=== PATIENT | male | born 1985 | race Caucasian/White ===

== ENCOUNTER 2016-09-20 11:45 | Emergency (ER) | payer MEDICAID ==
[2016-09-20] MEDS ORDERED: ONDANSETRON HCL 4 MG/2 ML VIAL ONE (12:22)
[2016-09-20] MEDS ORDERED: HYDROmorphone HCL 1 MG/ML SYR ONE (12:31)
[2016-09-20 13:02] LABS: BLOOD UREA NITROGEN 12 mg/dL (9-20); CALCIUM 10.2 mg/dL (8.4-10.2); CHLORIDE 106 mmol/L (98-107); CREATININE 0.7 mg/dL (0.7-1.3); EST GLOMERULAR FILTRATION RATE > 60 mL/min; GLUCOSE 106 mg/dL (70-100); POTASSIUM 4.4 mmol/L (3.5-5.1); SODIUM 142 mmol/L (137-145)
--- NOTE | 2016-09-20 14:28 | ER PHYSICIAN DOCUMENTATION ---
Physician Documentation [facility] Name:Corbin Bangura Age:31 yrs Sex:Male :1985 Arrival Date:09/20/2016 Time:11:45 Bed1 Private MD: Jamal Ledbetter Disposition: 09/20/16 14:05 Discharged to Home/Self Care. Impression: Gastroenteritis. - Condition is Good. - Discharge Instructions: GASTROENTERITIS, Viral [5y-Adult]. - Prescriptions for Phenergan 25 mg Oral tablet - take 1 tablet by ORAL route every 6 hours as needed; 20 tablet. - Medical Reconciliation form form. - Follow up: Private Physician; When: As needed; Reason: Continuance of care. - Problem is new. - Symptoms have improved. HPI: 09/20 12:00 This 31 yrs old Male presents to ER via Private Vehicle with complaints of jm Abdominal Pain, Nausea/Vomiting. 12:00 The patient presents with abdominal pain that is diffuse. Onset: The symptoms/episode jm began/occurred today. The symptoms do not radiate. Associated signs and symptoms: Pertinent positives: diarrhea, nausea, vomiting. The symptoms are described as crampy. Severity of pain: in the emergency department the pain is a 10 / 10. The patient has not experienced similar symptoms in the past. Pt hs been up vomiting all night long, now w pain. Pt also w diarrhea. Pt denies blood in either. No fevers. . Historical: - Allergies: benadryl; - Home Meds: 1. deflecta 2. steroid - PMHx: chronic leg pain; possible sciatica; - PSHx: None; - Tetanus: < 10 years. - Ebola Screening: : Patient negative for fever greater than or equal to 101.5 degrees Fahrenheit, and additional compatible Ebola Virus Disease symptoms. Patient denies exposure to infectious person. Patient denies travel to an Ebola-affected area in the 21 days before illness onset. No symptoms or risks identified at this time. . - Immunization history: Pneumococcal vaccine is not up to date, Patient has never been vaccinated Flu Vaccine None. - Social history: Smoking status: Patient uses tobacco products, current every day smoker. Patient uses alcohol occasionally. marijuana. ROS: 12:00 Constitutional: Positive for fatigue, malaise, Negative for fever. jm 12:00 Abdomen/GI: Positive for abdominal pain, nausea, vomiting, diarrhea. 12:00 Neuro: Positive for weakness. Exam: 12:00 Constitutional: The patient appears alert, awake, comfortable. 12:00 Cardiovascular: Rate: bradycardic, Rhythm: regular. 12:00 Respiratory: Respirations: normal, Breath sounds: are normal. 12:00 Abdomen/GI: Bowel sounds: normal, Palpation: mild abdominal tenderness, in all quadrants. 12:00 Skin: Appearance: Color: pink, no rash present. Vital Signs: 12:00 BP 132 / 74; Pulse 52; Resp 32; Temp 98.1(TE); Pulse Ox 97% on R/A; Weight 72.57 kg; sj Height 6 ft. 2 in. (187.96 cm); Pain 10/10; 12:30 BP 141 / 75; Pulse 43; Pulse Ox 100% ; sj 12:35 Pulse Ox 78% on R/A; sj 12:37 Pulse Ox 99% on 2 lpm NC; sj 13:00 BP 125 / 65; Pulse 49; Pulse Ox 98% ; sj 13:01 BP 125 / 65; Pulse 50; Resp 18; Pulse Ox 98% on 2 lpm NC; Pain 1/10; sj 13:30 BP 134 / 64; Pulse 47; Pulse Ox 91% ; sj 14:00 BP 127 / 63; Pulse 49; Pulse Ox 91% ; sj 12:00 Body Mass Index 20.54 (72.57 kg, 187.96 cm) MDM: 12:32 Patient medically screened. 09/21 15:53 Differential diagnosis: gastritis, non-specific abd pain, VGE. Data reviewed: vital jm signs, nurses notes, lab test result(s), and as a result, I will discharge patient. Counseling: I had a detailed discussion with the patient and/or guardian regarding: the historical points, exam findings, and any diagnostic results supporting the discharge/admit diagnosis, lab results, the need for outpatient follow up, with the patient's primary care provider. Response to treatment: the patient's symptoms have resolved after treatment. 09/20 13:05 Order name: BASIC METABOLIC PANEL EDAL 09/20 12:33 Order name: Iv Saline Lock; Complete Time: 12:42 09/20 12:33 Order name: Pulse Ox Continuous; Complete Time: 12:42 09/20 12:41 Order name: Oxygen; Complete Time: 13:02 Dispensed Medications: 09/20 12:16 Drug: NS 0.9% 1000 ml; Route: IV; Rate: bolus; Site: left antecubital; sj 14:28 Follow up: IV Status: Completed infusion; IV Intake: 1000ml 12:27 Drug: Dilaudid 0.5 mg; Route: IVP; Site: left antecubital; sj 13:01 Follow up: BP 125 / 65; Pulse 50 bpm; Resp 18 bpm; Pulse Ox 98% 2 lpm Nasal Cannula; Pain 08/21 Adult 13:01 Follow up: Response: Pain is decreased 12:27 Drug: Phenergan 12.5 mg; Route: IVP; Site: left antecubital; sj 13:01 Follow up: Response: Nausea is decreased 12:35 Drug: NS 0.9% 1000 ml; Route: IV; Rate: bolus; Site: left antecubital; sj 12:59 Follow up: IV Status: Completed infusion; IV Intake: 1000ml Signatures: Jamal Bernabe MD MD jm Janzen, Sarah
--- NOTE | 2016-09-20 14:28 | ER NURSING DOCUMENTATION ---
Nurse's Notes [facility] Name:Corbin Bangura Age:31 yrs Sex:Male :1985 Arrival Date:09/20/2016 Time:11:45 Bed1 Private MD: Diagnosis:Gastroenteritis Presentation: 09/20 12:27 Presenting complaint: Patient states: nausea, vomiting, diarrhea since 0100 today. sj Unable to keep fluids down. Severe mid-lower abdominal pain. Ate a hamburger from a gas station yesterday evening. Transition of care: Home. 12:27 Acuity: BROOKE 3 sj 12:27 Method Of Arrival: Private Vehicle sj Triage Assessment: 12:35 General: Appears distressed, ill, uncomfortable, Behavior is anxious, crying, sj inappropriate for age, restless. Pain: Complains of pain in suprapubic area Pain currently is 10 out of 10 on a pain scale. Neuro: Level of Consciousness is awake, alert, Oriented to person, place, time, event. Cardiovascular: Capillary refill < 3 seconds. Respiratory: Airway is patent Respiratory effort is even, unlabored, Respiratory pattern is hyperventilation. GI: Abdomen is flat, Pt is actively vomiting clear fluid, Reports diarrhea, intolerance of fluids, intolerance of food, nausea, vomiting. Historical: - Allergies: benadryl; - Home Meds: 1. deflecta 2. steroid - PMHx: chronic leg pain; possible sciatica; - PSHx: None; - Tetanus: < 10 years. - Ebola Screening: : Patient negative for fever greater than or equal to 101.5 degrees Fahrenheit, and additional compatible Ebola Virus Disease symptoms. Patient denies exposure to infectious person. Patient denies travel to an Ebola-affected area in the 21 days before illness onset. No symptoms or risks identified at this time. . - Immunization history: Pneumococcal vaccine is not up to date, Patient has never been vaccinated Flu Vaccine None. - Social history: Smoking status: Patient uses tobacco products, current every day smoker. Patient uses alcohol occasionally. marijuana. Screenin:39 Infectious Disease Risk None. Abuse screen: Denies threats or abuse. Denies injuries sj from another. Nutritional screening: No deficits noted. Assessment: 12:39 See Triage Assessment done by same RN. sj 13:00 Reassessment: Patient states feeling better. Patient states symptoms have improved. sj drinking gatorade, nausea gone.. Vital Signs: 12:00 BP 132 / 74; Pulse 52; Resp 32; Temp 98.1(TE); Pulse Ox 97% on R/A; Weight 72.57 kg; sj Height 6 ft. 2 in. (187.96 cm); Pain 10/10; 12:30 BP 141 / 75; Pulse 43; Pulse Ox 100% ; sj 12:35 Pulse Ox 78% on R/A; sj 12:37 Pulse Ox 99% on 2 lpm NC; sj 13:00 BP 125 / 65; Pulse 49; Pulse Ox 98% ; sj 13:01 BP 125 / 65; Pulse 50; Resp 18; Pulse Ox 98% on 2 lpm NC; Pain 08/21; sj 13:30 BP 134 / 64; Pulse 47; Pulse Ox 91% ; sj 14:00 BP 127 / 63; Pulse 49; Pulse Ox 91% ; sj 12:00 Body Mass Index 20.54 (72.57 kg, 187.96 cm) ED Course: 11:47 Patient arrived in ED. ama 12:20 Notified ED Physician of patient's arrival and chief complaint. Dr. Bernabe notified. 12:27 Na Wang is Primary Nurse. 12:29 Triage completed. 12:32 Jamal Bernabe MD is Attending Physician. 12:40 Valuables Given to family. Patient has correct armband on for positive identification. Bed in low position. Call light in reach. Side rails up X2. 12:40 Inserted peripheral IV: 20 gauge in left antecubital area and blood collected. Missed sj attempts: 20 gauge X 1 in right antecubital area, Bleeding controlled, band aid applied, catheter tip intact. Oxygen Oxygen administration via nasal cannula @ 1L/min. 12:46 Inserted. 13:02 Pulse ox on. Administered Medications: 12:16 Drug: NS 0.9% 1000 ml; Route: IV; Rate: bolus; Site: left antecubital; 14:28 Follow up: IV Status: Completed infusion; IV Intake: 1000ml 12:27 Drug: Dilaudid 0.5 mg; Route: IVP; Site: left antecubital; sj 13:01 Follow up: BP 125 / 65; Pulse 50 bpm; Resp 18 bpm; Pulse Ox 98% 2 lpm Nasal Cannula; Pain 08/21 Adult 13:01 Follow up: Response: Pain is decreased sj 12:27 Drug: Phenergan 12.5 mg; Route: IVP; Site: left antecubital; sj 13:01 Follow up: Response: Nausea is decreased sj 12:35 Drug: NS 0.9% 1000 ml; Route: IV; Rate: bolus; Site: left antecubital; sj 12:59 Follow up: IV Status: Completed infusion; IV Intake: 1000ml sj Intake: 12:59 IV: 1000ml; Total: 1000ml. sj 14:28 IV: 1000ml; Total: 2000ml. sj Outcome: 14:05 Discharge ordered by . joby 14:26 Discharged to home ambulatory. 14:26 Condition: improved 14:26 Discharge instructions given to patient, family, Instructed on discharge instructions, follow up and referral plans. medication usage, Prescriptions given X 1. 14:28 IV D/Esteban sj 14:28 Patient left the ED. sj 09/21 09:44 Discharge F/U Call: Spoke with: spouse with permission of patient. Name: Have nf you filled your prescriptions? yes. What is the one thing you feel we could do to improve? Patient's answer: reports significant improvement and states he has not needed phenergan Signatures: Patrica Terrazas RN RN nf Meyer, John, MD MD jm Averdick, Andrew, Na Joe
== END 2016-09-20 14:29 | disposition home or self-care (01) ==
LOC: ER 11:45
DX: K52.89 Other specified noninfective gastroenteritis and colitis (principal); R53.83 Other fatigue; R53.81 Other malaise; R53.1 Weakness; R00.1 Bradycardia, unspecified; F17.210 Nicotine dependence, cigarettes, uncomplicated
CPT/HCPCS: 80048; 96361; 96374; 96375; 99284; J1170; J2405; J2550